=== PATIENT | female | born 1980 | race Caucasian/White ===

== ENCOUNTER 2019-02-20 06:58 | Day surgery (SDC) | payer BC, MEDICAID ==
[~2019-02-20 06:58] MED LIST: Lidocaine 1% with EPINEPHrine 1:100,000 50 ML MDV ONE; Sodium Chloride 0.9% 10 ML ONE; Sodium Tetradecyl Sulfate 1% 20 MG/2 ML SDV ONE
[2019-02-20] MEDS ORDERED: Midazolam 1 MG/ML 2 ML SDV ONE (07:27)
[2019-02-20] MEDS ORDERED: fentaNYL 100 MCG/2 ML SDV ONE (07:27)
[2019-02-20] MEDS ORDERED: Propofol 200 MG/20 ML SDV ONE ×2 (07:27→08:31)
[2019-02-20] MEDS ORDERED: Sodium Chloride 0.9% 1,000 ML IV SCH (07:45)
[2019-02-20] MEDS: Lidocaine 1% w/EPINEPHrine 50 ML, Sodium Bicarbonate 5 MEQ in Sodium Chloride 0.9% 950 ML INJECT SCH ×2 (08:31→08:38)
[2019-02-20] MEDS ORDERED: Ketorolac 60 MG/2 ML SDV ONE (08:35)
[2019-02-20] MEDS ORDERED: Dexamethasone 4 MG/ML SDV ONE (08:36)
[2019-02-20] MEDS ORDERED: Ondansetron 4 MG/2 ML SDV ONE (08:36)
--- NOTE | 2019-02-21 08:10 | OR ---
DATE OF PROCEDURE: 02/20/2019 SURGEON: Bishnu tSone MD PROCEDURES: 1. Radiofrequency ablation of left greater saphenous vein. 2. Radiofrequency ablation of right greater saphenous vein. 3. Sclerotherapy of left leg, multiple. 4. Sclerotherapy of right leg, multiple. 5. Compression wrap, left leg (18509). 6. Compression wrap, right leg (51755). COMPLICATIONS: None. CENTER REP: None. ANESTHESIA: MAC/local. RISKS: Risks, benefits, alternatives, and limitations including, but not limited to infection, bleeding, and perforation were explained to the patient, who wished to proceed. PROCEDURE IN DETAIL: The patient was placed in supine position. The left greater saphenous vein was addressed first. This was accessed at the level of the ankle using a 21-gauge needle, exchanged for a 35,000th wire, then exchanged for a 7-[place] sheath. The RFA probe was advanced to 3 cm from the saphenofemoral junction. Tumescent fluid was injected in a 1-cm jacket around this. This would be verified a second and a third time. Direct even pressure was held as the probe was deployed x2 proximally and distally, and x1 in all other segments. The sheath was then removed and direct pressure was held for 10 minutes. Dermabond was applied. The right leg was then addressed in the same manner, same fashion, same technique, in the same sequence and using the same equipment. Sclerotherapy was then performed of left and right legs using 0.33% sodium tetradecyl, 6 on the right and 4 on the left. It was always drawn back to ensure intravascular injection only and no more than 2 mL was injected in any one location. Two-layer two-stage compression was then used in the proximal to distal gradient at 20 mmHg pressure using a [id number] confirmation. The patient tolerated the procedure well. Bishnu Stone MD /[id number]
== END 2019-02-20 10:15 | disposition home or self-care (01) ==
LOC: JP.SDS 06:58
PROVIDERS: ATTEND Surgery
DX: I87.2 Venous insufficiency (chronic) (peripheral) (principal); F17.200 Nicotine dependence, unspecified, uncomplicated
CPT/HCPCS: 36471; 36475; J1100; J1642; J1885; J2250; J2405; J2704; J3010; J7030; J3490